=== PATIENT | male | born 1990 | race Caucasian/White ===

== ENCOUNTER 2017-01-13 14:47 | Emergency (ER) | payer MEDICAID ==
[~2017-01-13] VITALS: Ht 177.8 cm; Wt 86.0 kg
[2017-01-13] MEDS ORDERED: LIDOCAINE HCL 1% 20ML VIAL (Pyxis) INJ MC ONE (15:30)
[2017-01-13] MEDS ORDERED: TETANUS, DIPHTHERIA, PERTUSSIS VAC/PF 0.5ML (>7YR OLD) IM ONE (15:30)
[2017-01-13] MEDS ORDERED: BACITRACIN ZINC OINT UDPKT TOP ONE (15:30)
[2017-01-13] MEDS ORDERED: HYDROCODONE/ACETAMINOPHEN 5/325MG TABLET PO ONE (15:45)
[2017-01-13 18:36] VITALS: BP 115/78
== END 2017-01-13 18:39 | disposition home or self-care (01) ==
LOC: ER 15:47
DX: S01.81XA Laceration without foreign body of other part of head, initial encounter (principal); S01.512A Laceration without foreign body of oral cavity, initial encounter; F17.200 Nicotine dependence, unspecified, uncomplicated; Y04.0XXA Assault by unarmed brawl or fight, initial encounter; Y93.89 Activity, other specified; Y92.410 Unspecified street and highway as the place of occurrence of the external cause; Y99.8 Other external cause status
CPT/HCPCS: 12013; 90471; 90715; 99283; J3490; X7700; Z7610

== ENCOUNTER 2019-04-08 08:37 | Inpatient (IN) | payer SELFPAY ==
[~2019-04-08] VITALS: Ht 177.8 cm; Wt 86.2 kg
[2019-04-08 04:30] VITALS: BP 126/79
[2019-04-08 09:32] LABS: HEMATOCRIT. 42.3 % (42.0-52.0); HEMOGLOBIN. 14.5 g/dL (14.0-18.0); MEAN CORPUSCULAR HEMOGLOBIN 30.1 pg (28.0-32.0); MEAN CORPUSCULAR VOLUME 87.8 fL (80.0-94.0); MEAN PLATELET VOLUME 7.9 fl (7.4-10.4); PLATELET 221 x1000/uL (130-400); RED BLOOD CELL COUNT 4.82 mill/uL (4.7-6.1); RED CELL DISTRIBUTION WIDTH 13.6 % (11.6-14.6)
[2019-04-08 09:34] LABS: CHLORIDE 104 mEq/L (98-107)
[2019-04-08 09:35] LABS: PROTHROMBIN TIME 10.5 sec (9.6-11.0)
[2019-04-08 10:27] LABS: CLARITY URINE CLEAR (CLEAR); COLOR URINE YELLOW (YELLOW); KETONES URINE TRACE (NEGATIVE); LEUKOCYTE ESTERASE URINE NEGATIVE (NEGATIVE); NITRITE URINE NEGATIVE (NEGATIVE); OCCULT BLOOD URINE NEGATIVE (NEGATIVE); PH URINE >=9.0 (4.5-8.0); PROTEIN URINE 2+ (NEGATIVE); SPECIFIC GRAVITY URINE 1.029 (1.005-1.030)
[2019-04-08 11:17] LABS: PLATELET ESTIMATE NORMAL
[2019-04-08] MEDS ORDERED: MORPHINE SULFATE 4 MG/ML CPJ (NOT FOR IM USE) IV ONE (11:45)
[2019-04-08] MEDS ORDERED: ONDANSETRON HCL 4MG/2ML INJ IV PRN ×3 (12:45→16:30)
[2019-04-08] MEDS ORDERED: BUPIVACAINE HCL 0.5% (5MG/ML) 50ML ONE (12:53)
[2019-04-08] MEDS ORDERED: FENTANYL CITRATE/PF 50MCG/ML 2ML VIAL ONE (13:08)
[2019-04-08] MEDS ORDERED: NEOSTIGMINE METHYLSULFATE 1MG/ML 10 ML VIAL ONE (13:08)
[2019-04-08] MEDS ORDERED: ROCURONIUM BROMIDE 10MG/ML VIAL 5ML IV ONE ×2 (13:08→13:21)
[2019-04-08] MEDS ORDERED: GLYCOPYRROLATE 0.2 MG/ML 2ML VIAL ONE (13:09)
[2019-04-08] MEDS ORDERED: PROPOFOL 200MG/20ML VIAL IV ONE (13:09)
[2019-04-08] MEDS ORDERED: MIDAZOLAM HCL 2 MG/2 ML VIAL ONE (13:09)
[2019-04-08] MEDS ORDERED: DEXAMETHASONE 4MG/ML 1ML VIAL ONE (13:10)
[2019-04-08] MEDS ORDERED: ONDANSETRON HCL 4MG/2ML INJ ONE ×2 (13:10→15:14)
[2019-04-08] MEDS ORDERED: SKIN ADHESIVE 0.7 GM EA TOP ONE (13:43)
[2019-04-08] MEDS ORDERED: MEPERIDINE HCL/PF 25MG/ML CPJ IV PRN (13:45)
[2019-04-08] MEDS ORDERED: LABETALOL HCL 5MG/ML VIAL 20ML IV PRN (13:45)
[2019-04-08] MEDS ORDERED: PIPERACILLIN/TAZ 3.375G PREMIX 50 ML IV SCH (14:00)
[2019-04-08] MEDS ORDERED: PIPERACILLIN/TAZOBACTAM 3.375 G in DEXT 5% WATER 100 ML IV NR (14:00)
[2019-04-08] MEDS: HYDROMORPHONE HCL/PF 2MG/ML CPJ IV PRN ×2 (15:18→15:35)
[2019-04-08 16:00] VITALS: BP 126/79
[2019-04-08 16:30] VITALS: BP 126/79
[2019-04-08] MEDS ORDERED: ACETAMINOPHEN 325MG TABLET PO PRN (16:30)
[2019-04-08] MEDS ORDERED: CLONIDINE 0.1MG TABLET PO PRN (16:30)
[2019-04-08 20:00] VITALS: BP 113/72
[2019-04-08] MEDS: MORPHINE SULFATE 2 MG/ML CPJ (NOT FOR IM USE) IV PRN (20:07)
[2019-04-08] MEDS: DEXT 5%/0.45% NACL KCL 20MEQ/L 1,000 ML IV SCH (20:35)
[2019-04-08] MEDS: PIPERACILLIN/TAZOBACTAM 3.375 G in DEXT 5% WATER 100 ML IV SCH (20:35)
[2019-04-08] MEDS: FAMOTIDINE 20MG/2ML VIAL IV SCH (20:36)
[2019-04-09] VITALS: BP 100/57
[2019-04-09] MEDS: MORPHINE SULFATE 2 MG/ML CPJ (NOT FOR IM USE) IV PRN ×5 (02:46→21:41)
[2019-04-09] MEDS: PIPERACILLIN/TAZOBACTAM 3.375 G in DEXT 5% WATER 100 ML IV SCH ×4 (02:56→20:22)
[2019-04-09 04:00] VITALS: BP 117/57
[2019-04-09] MEDS: DEXT 5%/0.45% NACL KCL 20MEQ/L 1,000 ML IV SCH ×2 (05:35→13:59)
[2019-04-09 07:26] LABS: HEMATOCRIT. 39.1 % (42.0-52.0); HEMOGLOBIN. 13.5 g/dL (14.0-18.0); MEAN CORPUSCULAR HEMOGLOBIN 30.4 pg (28.0-32.0); MEAN PLATELET VOLUME 8.2 fl (7.4-10.4); PLATELET 221 x1000/uL (130-400); RED BLOOD CELL COUNT 4.45 mill/uL (4.7-6.1); RED CELL DISTRIBUTION WIDTH 13.6 % (11.6-14.6)
[2019-04-09 07:28] LABS: CHLORIDE 105 mEq/L (98-107)
[2019-04-09] MEDS: FAMOTIDINE 20MG/2ML VIAL IV SCH ×2 (08:44→20:22)
[2019-04-09 19:49] LABS: PLATELET ESTIMATE NORMAL
[2019-04-09 20:00] VITALS: BP 133/92
[2019-04-10] VITALS (7 sets, daily range): BP systolic 107–138; BP diastolic 71–93
[2019-04-10] MEDS: PIPERACILLIN/TAZOBACTAM 3.375 G in DEXT 5% WATER 100 ML IV SCH ×4 (01:03→20:22)
[2019-04-10] MEDS: HYDROCODONE/ACETAMINOPHEN 5/325MG TABLET PO PRN ×3 (01:18→20:38)
[2019-04-10] MEDS: DEXT 5%/0.45% NACL KCL 20MEQ/L 1,000 ML IV SCH ×2 (02:30→18:07)
[2019-04-10] MEDS: METOPROLOL TARTRATE 25MG TABLET PO SCH ×3 (02:30→20:28)
[2019-04-10] MEDS: FAMOTIDINE 20MG/2ML VIAL IV SCH ×2 (08:51→20:22)
[2019-04-10 09:43] LABS: HEMOGLOBIN. 13.4 g/dL (14.0-18.0); MEAN CORPUSCULAR HEMOGLOBIN 30.2 pg (28.0-32.0); MEAN CORPUSCULAR VOLUME 87.8 fL (80.0-94.0); MEAN PLATELET VOLUME 8.4 fl (7.4-10.4); PLATELET 243 x1000/uL (130-400); RED BLOOD CELL COUNT 4.44 mill/uL (4.7-6.1); RED CELL DISTRIBUTION WIDTH 13.8 % (11.6-14.6)
[2019-04-10 12:37] LABS: PLATELET ESTIMATE NORMAL
[2019-04-11] VITALS: BP 129/84
[2019-04-11] MEDS: DEXT 5%/0.45% NACL KCL 20MEQ/L 1,000 ML IV SCH ×2 (01:12→23:53)
[2019-04-11] MEDS: PIPERACILLIN/TAZOBACTAM 3.375 G in DEXT 5% WATER 100 ML IV SCH ×4 (01:12→20:36)
[2019-04-11 04:00] VITALS: BP 117/77
[2019-04-11 06:30] LABS: BASOPHILS % 0.2 % (0.0-2.0); EOSINOPHILS % 1.7 % (0.0-5.0); HEMATOCRIT. 36.3 % (42.0-52.0); HEMOGLOBIN. 12.4 g/dL (14.0-18.0); LYMPHOCYTES % 7.7 % (20.0-50.0); MEAN CORPUSCULAR HEMOGLOBIN 30.1 pg (28.0-32.0); MEAN CORPUSCULAR VOLUME 88.1 fL (80.0-94.0); MEAN PLATELET VOLUME 8.1 fl (7.4-10.4); MONOCYTES % 6.3 % (2.0-8.0); NEUTROPHILS % 84.1 % (40.0-76.0); PLATELET 249 x1000/uL (130-400); RED BLOOD CELL COUNT 4.12 mill/uL (4.7-6.1)
[2019-04-11 08:00] VITALS: BP 123/79
[2019-04-11] MEDS: FAMOTIDINE 20MG/2ML VIAL IV SCH ×2 (08:57→20:35)
[2019-04-11] MEDS: METOPROLOL TARTRATE 25MG TABLET PO SCH ×2 (09:00→20:36)
[2019-04-11 12:00] VITALS: BP 126/78
[2019-04-11 16:00] VITALS: BP 122/81
[2019-04-11 20:00] VITALS: BP 128/78
[2019-04-11] MEDS: HYDROCODONE/ACETAMINOPHEN 5/325MG TABLET PO PRN (21:47)
[2019-04-12] VITALS: BP 131/66
[2019-04-12] MEDS: PIPERACILLIN/TAZOBACTAM 3.375 G in DEXT 5% WATER 100 ML IV SCH ×2 (02:36→09:01)
[2019-04-12 04:00] VITALS: BP 106/64
[2019-04-12 07:07] LABS: BASOPHILS % 0.2 % (0.0-2.0); EOSINOPHILS % 1.8 % (0.0-5.0); HEMOGLOBIN. 11.5 g/dL (14.0-18.0); LYMPHOCYTES % 10.7 % (20.0-50.0); MEAN CORPUSCULAR HEMOGLOBIN 30.5 pg (28.0-32.0); MEAN CORPUSCULAR VOLUME 87.4 fL (80.0-94.0); MEAN PLATELET VOLUME 7.3 fl (7.4-10.4); MONOCYTES % 11.1 % (2.0-8.0); NEUTROPHILS % 76.2 % (40.0-76.0); PLATELET 289 x1000/uL (130-400); RED BLOOD CELL COUNT 3.78 mill/uL (4.7-6.1)
[2019-04-12] MEDS: FAMOTIDINE 20MG/2ML VIAL IV SCH (09:01)
[2019-04-12] MEDS: METOPROLOL TARTRATE 25MG TABLET PO SCH (09:04)
[2019-04-12 11:10] VITALS: BP 122/98
== END 2019-04-12 11:55 | disposition home or self-care (01) | DRG 233 ==
LOC: ER 08:37 → 6EST 12:53
PROVIDERS: ADMIT Hospitalist; ATTEND Hospitalist
PROC: 0DTJ4ZZ Resection of Appendix, Percutaneous Endoscopic Approach (ICD-10-PCS; principal; 2019-04-09)
DX: K35.32 Acute appendicitis with perforation, localized peritonitis, and gangrene, without abscess (principal); K56.7 Ileus, unspecified; Z79.899 Other long term (current) drug therapy; Z90.49 Acquired absence of other specified parts of digestive tract
CPT/HCPCS: 36415; 73706; 74018; 74176; 76700; 81003; 88304; 99285; C1893; J1100; J1170; J2250; J2270; J2405; J2543; J2704; J2710; J3010; J3490; J7030; J7060